=== PATIENT | female | born 2000 | race Caucasian/White ===

== ENCOUNTER 2020-03-20 21:07 | Emergency (ER) | payer MEDICAID, SELFPAY ==
[2020-03-20 21:09] VITALS: BP 114/64; PULSE 107; RESP 18; TEMP 36.5; O2SAT 98; BMI 35.2
[2020-03-20 21:32] VITALS: BP 125/80; PULSE 102; RESP 17; O2SAT 99
--- NOTE | 2020-03-20 21:54 | ED_ITS ---
HPI - Abdominal Pain General: Chief Complaint: Abdominal Pain Stated Complaint: 37 wk preg/ side pain/ swollen feet Time Seen by Provider: 03/20/20 21:25 History of Present Illness: HPI narrative: 19-year-old female patient presents to the emergency department 37 weeks IUP. Reports past 24-hour onset of right upper quadrant pain/right side pain. She denies falls trauma -reports nausea, denies vomiting. She reports normal intake of p.o. solids and liquids. She denies fever or chills. Reports increased swelling to the bilateral lower extremities. She reports heartburn symptoms. Last ate today. She reports took Tylenol for pain, no results of improvement. Primary care provider/OB is Dr. Akers. She reports normal movement, denies contractions or lower abdominal pain. MD elicited complaint: abdominal pain Pertinent past history: none Onset (ago): day(s) (2) Pain Consistency: constant Location: RUQ and RLQ Severity: moderate Quality: stabbing Migration to: no migration Exacerbating factors: nothing Relieving factors: nothing Associated Symptoms: Reports nausea and other (headache); Denies chills, GI cramping, dysuria, fever(s) and vomiting Treatments prior to arrival: other (APAP) Review of Systems General: Reports: 10 or more systems reviewed and unremarkable except in HPI and below Const: Denies: fever(s), chills or diaphoresis Eyes: Denies: blurry vision or eye redness ENMT: Denies: throat pain, dental pain or disequilibrium Card: Denies: chest pain, palpitations or irregular heart rhythm Resp: Denies: dyspnea, productive cough, non-productive cough or wheezing GI: Reports: abdominal pain, nausea and other (headache); Denies: vomiting or GI cramping : Reports: flank pain and urinary frequency; Denies: difficulty voiding, dysuria, urinary urgency or urinary incontinence Musc: Denies: neck pain or back pain Skin/Breast: Denies: rash or pruritus Neuro: Denies: headache(s), weakness in extremities or behavioral changes Psych: Denies: anxiety or depression Olvin/Lymph: Denies: easy bruising PFSH ED PFSH: Social History Smoking and tobacco status: never smoked Physical Exam Const: COMMON NORMALS: no acute distress, patient oriented x3, healthy appearing and alert GENERAL APPEARANCE: cooperative, anxious and well hydrated ORIENTATION/CONSCIOUSNESS: Yes awake, Yes oriented to person, Yes oriented to place and Yes oriented to time HENMT: COMMON NORMALS: normocephalic, Normal external nose present and moist oral mucous membranes HEAD & SCALP: normocephalic NOSE: Normal external nose present Eye: COMMON NORMALS: Equal, round and reactive pupils present and EOMs intact bilaterally GENERAL EYE: appearance normal, both eyes and all related structures PUPIL: Yes Equal, round and reactive pupils present Neck/C-Spine: COMMON NORMALS: full ROM and no lymphadenopathy GENERAL: Yes normal visual inspection and Yes trachea midline CERVICAL SPINE: Yes cervical ROM normal Lymph: LYMPHATIC: no lymphadenopathy noted Chest: COMMONS NORMALS: normal inspection of the chest Resp: COMMON NORMALS: normal respiratory effort and clear to auscultation bilaterally AUSCULTATION: clear to auscultation bilaterally Cardio: COMMON NORMALS: regular rhythm, S1 normal heart sound present and S2 normal heart sound present RHYTHM: regular rhythm HEART SOUNDS: S1 normal heart sound present and S2 normal heart sound present GI: COMMON NORMALS: Normal to inspection, nondistended, normoactive bowel sounds present INSPECTION: Yes normal to inspection, No Abdominal wall edema, No visible peristalsis and Yes other () AUSCULTATION: Yes normoactive bowel sounds PALPATION: Yes Tenderness to palpation present (GI) (right flank) Details: RLQ and RUQ : COMMON NORMALS: Yes no CVA tenderness BLADDER/KIDNEY EXAM: Yes no CVA tenderness Back/Pelvis: COMMON NORMALS: no CVA tenderness and thoracic and lumbar spine normal to inspection Extremity: COMMON NORMALS: normal to inspection and capillary refill normal Neuro: XU COMA SCALE: document GCS findings [place] coma scale eye opening: Spontaneous [place] coma scale verbal response: Orientated Xu coma scale motor response: Obey commands Xu coma scale total score: 15 COMMON NORMALS: patient oriented x3 and no focal motor deficits SENSORIUM/ORIENTATION: Yes alert, Yes oriented to person, Yes oriented to place and Yes oriented to time SPEECH: speech normal GAIT: Yes Normal gait present MOTOR EXAM: 5/5 motor strength present throughout Psych: COMMON NORMALS: mental status grossly normal, Normal thought process p resent and cooperative ACTIVITY/MOTOR BEHAVIOR: Yes appropriate eye contact THOUGHT PROCESS: Normal thought process present Skin: COMMON NORMALS: no rashes or lesions noted and turgor normal GENERAL SKIN EXAM: no rashes or lesions noted and turgor normal Course ED course: Continuous monitoring, heart rate 147, obstetrics at bedside, no contractions -results discussed with the patient, after monitoring and reassurance, patient reports right upper quadrant pain and right side pain resolved, nausea resolved, she reports feeling better and is requesting to go home. She has tolerated p.o. fluids, case discussed with Dr. Hernandez, will discharge home with plan for her to follow-up with her OB this week as scheduled. Vital Signs: Vital signs: Vital Signs Temperature 97.7 F 03/20/20 21:09 Pulse Rate 78 03/20/20 23:56 Respiratory Rate 18 03/20/20 23:56 Blood Pressure 125/80 03/20/20 21:32 Pulse Oximetry 100 03/20/20 23:56 MDM - Abdominal Pain Lab Data: Labs: Lab Results 03/20/20 03/20/20 03/20/20 Range/Units 22:00 22:00 22:19 WBC 10.2 (4.5-13.0) 10^3/ uL RBC 3.71 L (4.1-5.3) 10^6/u L Hgb 9.1 L (11.5-15.3) g/dL Hct 29.6 L (37.0-47.0) % MCV 79.8 L (81-99) fL MCH 24.5 L (28.0-34.0) pg MCHC 30.7 (30.0-36.0) g/dL RDW 14.5 (12.1-15.1) % Plt Count 352 (130-400) 10^3/c mm MPV 11.3 H (7.4-10.4) fL Neut % (Auto) 67.8 % Lymph % (Auto) 21.8 % Henry % (Auto) 8.0 % Eos % (Auto) 1.0 % Baso % (Auto) 0.3 % Neut # (Auto) 6.93 (1.8-8.0) 10^3/u L Lymph # (Auto) 2.2 (1.5-6.5) 10^3/u L Henry # (Auto) 0.8 (0.2-0.9) 10^3/u L Eos # (Auto) 0.1 (0.0-0.8) 10^3/u L Baso # (Auto) 0.0 (0.0-0.1) 10^3/u L Nucleated RBC % (a uto) 0 % Nucleated RBCs # 0.0 /100WBC Sodium 139 (136-145) mmol/L Potassium 3.7 (3.5-5.1) mmol/L Chloride 108 H (98-107) mmol/L Carbon Dioxide 21 L (22-29) mmol/L Anion Gap 13.7 (5-19) BUN 6 (6-20) mg/dL Creatinine 0.6 (0.5-0.9) mg/dL GFR Calculation 127.5 (90-130) mL/min Glucose 157 H (65-115) mg/dL Calculated Osmolal ity 289 (285-295) mOsm/k g Calcium 9.0 (8.5-10.5) mg/dL Total Bilirubin 0.2 (0.15-1.2) mg/dL AST 11 (0-32) U/L ALT < 5 (0-33) U/L Alkaline Phosphata se 144 H (35-105) IU/L Total Protein 5.6 L (6.6-8.7) g/dL Albumin 3.0 L (3.5-5.2) g/dL Globulin 2.6 (1.3-4.6) g/dL Lipase 18 (13-60) U/L Urine Color Yellow (Yellow) Urine Appearance Clear (CLEAR) Urine pH 5 (5-7) Ur Specific Gravit y 1.015 (1.005-1.030) Urine Protein Neg (Negative) Urine Glucose (UA) Norm (Normal) Urine Ketones Negative (Negative) Urine Blood Neg (Negative) Urine Nitrate Negative (Negative) Urine Bilirubin Neg (Negative) Urine Urobilinogen Norm (Negative) mg/dL Ur Leukocyte Pat ase Negative (Negative) Discharge Plan Discharge Patient Disposition: Home Clinical Impression: Abdominal pain, RUQ, Nausea Qualifiers: Weeks of gestation: 37 weeks Qualified Code(s): Z3A.37 - 37 weeks gestation of Condition: Stable Prescriptions: No Action triamcinolone acetonide 0.1 % cream 1 applic TOPICAL BID Qty: 80 RF: 1 Discharge Orders: Discharge Order (Routine); Ordered 03/20/20 Ordered By: Neeru Castillo Referrals: Adryan Akers MD [Primary Care Provider] - Discharge Activity: Limit activity as instructed Patient Instructions: Acute Nausea and Vomiting (ED), Abdominal Pain (ED), Abdominal Pain in (ED) Activity Restrictions/Additional Instructions: Avoid fried fatty, greasy foods, small frequent meals Avoid foods that will upset your stomach Continue Tylenol as needed for pain Push fluids Follow-up with Dr. Akers this week as scheduled, contact his office tomorrow to let him know of ED evaluation today Return to the emergency department/hospital if you develop decreased activity, increased right upper quadrant pain, return of abdominal pain or continued nausea vomiting Discharge Date/Time: 03/20/20 23:57 Coding Level of Care Code ED Residential Solar Consultant for Chg Fwd Exam Comprehensive
[2020-03-20 22:15] LABS: Basophils % 0.3 %; Eosinophils # 0.1 10^3/uL (0.0-0.8); Hematocrit 29.6 % (37.0-47.0); Hemoglobin 9.1 g/dL (11.5-15.3); Lymphocytes # 2.2 10^3/uL (1.5-6.5); Lymphocytes % 21.8 %; Mean Corpuscular HGB Conc 30.7 g/dL (30.0-36.0); Mean Corpuscular Hemoglobin 24.5 pg (28.0-34.0); Mean Corpuscular Volume 79.8 fL (81-99); Mean Platelet Volume 11.3 fL (7.4-10.4); Monocytes # 0.8 10^3/uL (0.2-0.9); Neutrophils # 6.93 10^3/uL (1.8-8.0); Neutrophils % 67.8 %; Nucleated Red Blood Cells % 0 %; Platelet Count 352 10^3/cmm (130-400); Red Blood Count 3.71 10^6/uL (4.1-5.3); Red Cell Distribution Width 14.5 % (12.1-15.1); White Blood Count 10.2 10^3/uL (4.5-13.0)
[2020-03-20 22:29] LABS: Alanine Aminotransferase < 5 U/L (0-33); Alkaline Phosphatase 144 IU/L (35-105); Anion Gap 13.7 (5-19); Aspartate Amino Transferase 11 U/L (0-32); Blood Urea Nitrogen 6 mg/dL (6-20); Carbon Dioxide 21 mmol/L (22-29); Chloride 108 mmol/L (98-107); Globulin 2.6 g/dL (1.3-4.6); Glomerular Filtration Rate 127.5 mL/min (90-130); Glucose 157 mg/dL (65-115); Lipase 18 U/L (13-60); Osmolality Calculated 289 mOsm/kg (285-295); Potassium 3.7 mmol/L (3.5-5.1); Sodium 139 mmol/L (136-145); Total Bilirubin 0.2 mg/dL (0.15-1.2); Total Protein 5.6 g/dL (6.6-8.7)
[2020-03-20 22:56] LABS: Add Urine Microscopic? NO; Bilirubin Urine Neg (Negative); Blood Urine Neg (Negative); Glucose Urine UA Norm (Normal); Ketones Urine Negative (Negative); Leukocyte Esterase Urine Negative (Negative); Nitrate Urine Negative (Negative); Protein Urine Neg (Negative); Specific Gravity, Urine 1.015 (1.005-1.030); Urine Appearance Clear (CLEAR); Urine Color Yellow (Yellow); Urobilinogen Urine Norm (Negative); pH Urine 5 (5-7)
[2020-03-20 23:56] VITALS: PULSE 78; RESP 18; O2SAT 100
== END 2020-03-20 23:57 | disposition home or self-care (01) ==
PROVIDERS: Emergency Provider Nurse Practitioner Family; PCP Family Medicine
DX: O26.893 Other specified pregnancy related conditions, third trimester (principal); R10.11 Right upper quadrant pain; R11.0 Nausea; Z3A.37 37 weeks gestation of pregnancy
CPT/HCPCS: 12345; 36415; 80053; 81003; 83690; 85025; 99282

== ENCOUNTER 2020-04-15 13:37 | Inpatient (IN) | payer MEDICAID, SELFPAY ==
[2020-04-15] VITALS (33 sets, daily range): BP systolic 0–139; BP diastolic 0–87; PULSE 87–105; RESP 16–18; TEMP 36.7–37.4; O2SAT 97–98; BMI 39.4
--- NOTE | 2020-04-15 14:27 | US_ITS ---
WS: [id number] BIOPHYSICAL PROFILE AMNIOTIC FLUID HISTORY: IRREGULAR HEARTBEAT COMPARISON: 12/03/2019 Cardiac activity: 129 bpm. Cervix: closed. Placenta: Posterior, no previa or abruption. Vertex position. Parameters are as follows: Breathin Movement: 2 Tone: 2 Fluid volume: 2 US/US OB BPP wo NST 20821 IMPRESSION: 1. Biophysical profile score: 8/8. 2. Largest vertical pocket of amniotic fluid is 4.0 cm.
[2020-04-15] MEDS: miSOPROStol 100 mcg tablet 25 MCG VAGINAL ×2 (15:50→19:51)
[2020-04-15 16:08] LABS: Basophils % 0.2 %; Eosinophils # 0.1 10^3/uL (0.0-0.8); Eosinophils % 0.5 %; Hematocrit 29.5 % (37.0-47.0); Hemoglobin 8.8 g/dL (11.5-15.3); Lymphocytes # 1.7 10^3/uL (1.5-6.5); Lymphocytes % 12.8 %; Mean Corpuscular HGB Conc 29.8 g/dL (30.0-36.0); Mean Corpuscular Hemoglobin 24.3 pg (28.0-34.0); Mean Corpuscular Volume 81.5 fL (81-99); Mean Platelet Volume 12.6 fL (7.4-10.4); Monocytes # 0.8 10^3/uL (0.2-0.9); Monocytes % 6.3 %; Neutrophils # 10.23 10^3/uL (1.8-8.0); Neutrophils % 78.7 %; Nucleated Red Blood Cells % 0 %; Platelet Count 275 10^3/cmm (130-400); Red Blood Count 3.62 10^6/uL (4.1-5.3); Red Cell Distribution Width 16.8 % (12.1-15.1)
[2020-04-16] VITALS (324 sets, daily range): BP systolic 0–171; BP diastolic 0–111; PULSE 62–133; RESP 16–20; TEMP 36.9–37.8; O2SAT 74–100
[2020-04-16] MEDS: lactated ringers 1,000 ML 999 ML IV ×2 (01:09→02:50)
[2020-04-16] MEDS: dextrose 5%-lactated ringers 1,000 ML 125 ML IV ×4 (02:06→19:47)
[2020-04-16] MEDS: oxytocin 30 UNIT/500 ML BAG IV (02:21)
--- NOTE | 2020-04-16 03:30 | ANES.PREANE2 ---
Pre-Anesthetic Assessment Pre-Anesthetic Assessment: Height/Weight: Height 1.52 m Weight 91.626 kg Temp Pulse Resp BP Pulse Ox 98.6 F 116 H 16 140/71 96 04/16/20 01:00 04/16/20 03:52 04/16/20 01:00 04/16/20 03:52 04/16/20 03:52 Preop Diagnosis: IUP Proposed Procedure: labor epidural Was Beta Anne Marie taken within 24 hours: N/A Social: Social History: No alcohol and No tobacco Exam: Pre-Anes Outpt Exam: alert, oriented x 3, clear to auscultation bilaterally and regular rate & rhythm Airway: Submandibular: WNL Cervical ROM: WNL MP: 1 Additional comments: tongue piercing and lip ring History/ROS: No significant history except as noted Pulmonary: Pulmonary: None reported CV/HEM: CV/HEM: None reported : : None reported Hepatic: Hepatic: None reported GI: GI: GERD Metabolic: Metabolic: None reported Musc/skel: Musc/skel: None reported Neuropsych: Neuropsych: None reported Anesthetic Plan: ASA status: 1 Anesthesia: Anesthesia Evaluation Risk of > 500 ml blood loss (7ml/kg in children): No Meds/Allergies Current Medications: Current Medications Generic Name Dose Route Start Last Admin Trade Name Freq PRN Reason Stop Dose Admin Dextrose/Lactated Ringer's 1,000 mls @ 125 m ls/hr 04/15/20 14:30 04/16/20 03:53 Dextrose 5%-Lact ated Ringers IV 125 mls/hr .Q8H DAHIANA Administration Oxytocin 30 unit in 500 ml s @ 1 mls/hr 04/16/20 02:15 04/16/20 02:21 Pitocin IV 1 milliunit/min .Q24H DAHIANA 1 mls/hr Administration Protocol 1 MILLIUNIT/MIN Ropivacaine 200 mg in 100 mls @ 13 mls/hr 04/16/20 03:00 04/16/20 03:52 Naropin Premix EPIDURAL 13 mls/hr .Q7H42M DAHIANA Administration Lactated Ringer's 1,000 mls @ 999 m ls/hr 04/16/20 02:49 04/16/20 02:50 Lactated Ringers IV 999 mls/hr .Q1H1M PRN Administration See label comment s Ondansetron HCl 4 mg 11/20/20 14:26 04/16/20 03:52 Ondansetron 2 Mg /Ml Sdv 2 Ml IVP 4 mg Q4H PRN Administration NAUSEA AND VOMITI NG PFSH Anesthesia PFSH: Social History Smoking and tobacco status: never smoked Female Reproductive History: : 1 Data Anesthesia CBC & Chem 7: 04/15/20 15:30 Other Labs: Laboratory Results - last 48 hr 04/15/20 04/15/20 15:30 15:30 WBC 13.0 RBC 3.62 L Hgb 8.8 L Hct 29.5 L MCV 81.5 MCH 24.3 L MCHC 29.8 L RDW 16.8 H Plt Count 275 MPV 12.6 H Neut % (Auto) 78.7 Lymph % (Auto) 12.8 [place] % (Auto) 6.3 Eos % (Auto) 0.5 Baso % (Auto) 0.2 Neut # (Auto) 10.23 H Lymph # (Auto) 1.7 [place] # (Auto) 0.8 Eos # (Auto) 0.1 Baso # (Auto) 0.0 Nucleated RBC % (auto) 0 Nucleated RBCs # 0.0 Blood Type O Positive Rho(D) Type Positive Antibody Screen Negative Cardiac Studies: No Data to Display
[2020-04-16] MEDS: ondansetron 2 mg/ML SDV 2 mL 4 MG IVP (03:52)
--- NOTE | 2020-04-16 04:04 | ANES.PROC ---
Anesthesia Procedures Procedure/Date: 04/16/20 Epidural: Time Out Performed: Yes Consents Signed: Procedure Consent Consent: requested by attending/covering physician Lumbar Level: L3-L4 Epidural position: sitting Epidural procedure: sterile prep of area, 1% lidocaine to numb the area, 18 g needle, negative for paresthesia passed, neg for paresthesia, test dose given, 1.5% xylocaine 1:200k epi (5ml), placed PCEA, no systemic response, sterile dressing applied, L.U.D. no apparent complications and 0.2% Ropiavacaine @ mls/hr (13)
--- NOTE | 2020-04-16 04:24 | ANES.PROC ---
Anesthesia Procedures Procedure/Date: 04/16/20 Procedure Narrative: patient having L hip pain, turned to side, PCEA bolus initiated and Fentanyl 100mcg given per epidural
--- NOTE | 2020-04-16 12:10 | PC.NURSE ---
Notified Remi Quan CRNA, that bolus button has been pushed 2x, with no relief. Patient is breathing through contractions, rating her pain a 7/10.
--- NOTE | 2020-04-16 12:23 | PC.NURSE ---
Dr. Akers at patient bedside. Updated Dr. Akers on how heart strip looks on the monitor. heart tones can still be heard the same as it was previously, so orders received to continue care as previously being done.
--- NOTE | 2020-04-16 12:47 | ANES.PROC ---
Anesthesia Procedures Procedure/Date: 04/16/20 Procedure Narrative: I was called to assess pain level/epidural of the patient. She was visibly hurting and admitted ti a pain level of 7/10. A bolus was given to the patient of 10mL PF 2%lidocaine. After bolus given patient rated pain 3/10. will continue to monitor. Report of intervention to OB RN
--- NOTE | 2020-04-16 13:33 | PC.NURSE ---
scalp electrode came off at 1328. External monitor placed at 1329. scalp electrode placed at 1332. heart tones can be heard in the 140s while in the room.
--- NOTE | 2020-04-16 14:43 | ANES.PROC ---
Anesthesia Procedures Procedure/Date: 04/16/20 epidural Procedure Narrative: It was noted that patient epidural was not working after further inspection. Possible migration of previous epidural. Patient asked for epidural to be replaced. Previous epidural removed with tip intact. Patient was given 50 mcg fentanyl by DINING CAR SERVER prior to procedure start. 50 mcg fentanyl wasted with OB RN. Replacement epidural complete, bolus given, epidural pump initiated with PROGRAMMING DEVELOPMENT PROJECT MANAGER education given, vitals taken during procedure using OBIX system and satisfactory throughout, patient admits to decrease pain, report of procedure to OB RN Epidural: Time Out Performed: Yes Consents Signed: Procedure Consent Consent: requested by attending/covering physician, from patient, risks and benefits reviewed and patient agrees to proceed Lumbar Level: L2-L3 Epidural position: sitting Epidural procedure: sterile prep of area, 1% lidocaine to numb the area (3 mL), 18 g needle, negative for paresthesia passed, neg for paresthesia, test dose given, 1.5% xylocaine 1:200k epi (5 mL), 0.2% Ropivacaine bolus ml (5 mL), placed PCEA, no systemic response, sterile dressing applied, L.U.D. no apparent complications and 0.2% Ropiavacaine @ mls/hr (13 mL/hr)
--- NOTE | 2020-04-16 14:58 | PC.NURSE ---
scalp electrode removed. New scalp electrode applied. heart tones can be heard while in the room in the 140s.
--- NOTE | 2020-04-16 15:32 | PC.NURSE ---
Assisted the patient onto the bedpan. Instructed patient to hit her call light when she is finished.
--- NOTE | 2020-04-16 15:45 | PC.NURSE ---
Removed patient from the bedpan.
--- NOTE | 2020-04-16 16:46 | PC.NURSE ---
Patient hit her call light and stated she feels like she has to push. Performed SVE, patient is not complete. Educated patient on not pushing at this time, due to her still having cervix left. Patient acknowledged understanding.
[2020-04-16] MEDS: fentaNYL 50 mcg/mL INJ 2mL IVP (19:24)
[2020-04-16] MEDS: hyDROXYzine 25 mg Capsule 50 MG PO (20:18)
--- NOTE | 2020-04-16 20:42 | ANES.PROC ---
Anesthesia Procedures Procedure/Date: 04/16/20 Epidural assessment Procedure Narrative: Epidural assessed and noted to be functioning appropriately. Patient claims to have pain in the lower left side of her back. 100 mcg fentanyl with 5 mL of PF 2% lidocaine was given in the epidural with patient positioned on her left side. 5mL of PF 2% lidocaine wasted. Report of intervention to OB RN
--- NOTE | 2020-04-16 22:55 | P.HP_ITS ---
Providers/Chief Complaint Admitting Physician: Adryan Akers MD Primary Care Provider: Adryan Akers MD Chief Complaint: INDUCTION HPI CASING MATERIAL WEIGHER History of Present Illness Maribel Barney is a 19 year old 1 female at 39 weeks estimated gestational age who presented to the hospital for an elective induction since her was going to be leaving town in a few days. We discussed the need for avoiding an elective induction. The patient expressed understanding and wished to proceed with induction regardless. After presenting to the hospital her induction was initiated with Cytotec x2. During the process she was noted to have a arrhythmia. As result I placed a scalp lead and performed an amniotomy her labor was then augmented with Pitocin. She made very slow progress but eventually progressed to an anterior lip. Her cervix was somewhat stretchy, and the patient was not tolerating not pushing well, despite having a couple of different episodes of epidurals being placed and readjusted. As result we attempted to push to see if we could reduce the cervix. Despite an hour pushing the anterior lip maintained, and the baby's head did not move down maintain a station of 0. Present Details : 1 Para: 0 Labs Rubella: Non-Immune RPR: Negative GBS: Negative Review of Systems General: Reports: 10 or more systems reviewed and unremarkable except in HPI and below Const: Reports: fatigue; Denies: fever(s) Eyes: Denies: change in vision Card: Denies: chest pain GI: Reports: heartburn Musc: Reports: back pain Olvin/Lymph: Denies: easy bruising Medications/Allergies Home Medications Medication Instructions Recorded Confirmed Last Taken Type docusate sodium 100 mg PO BID PRN #30 cap 04/19/20 Unknown Rx ferrous sulfate 325 mg PO BIDWM #60 tab 04/19/20 Unknown Rx ibuprofen 800 mg PO TID #45 tab 04/19/20 Unknown Rx multivit no.01-ocyk-aorek acid 1 cap PO BREAKFAST #30 cap 04/19/20 Unknown Rx [-U] oxycodone-acetaminophen 1 tab PO Q4H PRN #28 tab 04/19/20 Unknown Rx Allergies Allergy/AdvReac Type Severity Reaction Status Date / Time No Known Allergies Allergy Verified 12/19/19 11:59 PFSH CASING MATERIAL WEIGHER PFSH: Social History (Reviewed 12/14/19 @ 16:47 by CARRIE Denise Smoking and tobacco status: never smoked Vitals/I&O/Wt Last Vital Signs Temp 99.2 F 04/16/20 20:42 Pulse 118 H 04/16/20 22:44 Resp 18 04/16/20 19:24 BP 160/71 04/16/20 22:44 Pulse Ox 97 04/16/20 16:34 04/16/20 04/16/20 04/16/20 06:59 14:59 22:59 Intake Total 226.567 / 581.752 5324.900 / 1792.327 1264.766 / 2357.666 Output Total 200 / 200 900 / 900 120 / 1020 Balance 26.567 / 26.567 292.900 / 847.233 3382.766 / 1337.666 Weight last 48 hrs Weight 202 lb Physical Exam Const: COMMON NORMALS: patient oriented x3 and alert HENMT: COMMON NORMALS: moist oral mucous membranes HEAD & SCALP: normal to inspection Chest: COMMONS NORMALS: normal inspection of the chest Resp: COMMON NORMALS: clear to auscultation bilaterally AUSCULTATION: clear to auscultation bilaterally Cardio: COMMON NORMALS: regular rate and regular rhythm RATE: regular rate RHYTHM: regular rhythm GI: INSPECTION: Yes normal to inspection and Yes other (Gravid) Extremity: COMMON NORMALS: normal to inspection GENERAL: Yes edema (Trace) Neuro: COMMON NORMALS: patient oriented x3, moves all extremities and no sensory deficits noted SENSORIUM/ORIENTATION: Yes alert Psych: COMMON NORMALS: mental status grossly normal Skin: COMMON NORMALS: no rashes or lesions noted GENERAL SKIN EXAM: no rashes or lesions noted Urinary Catheter Management^: Perez: Cath Placed During This Visit: yes Reason for Continuing Indwelling Catheter: Required Immobilization for Trauma or Surgery or Anesthesia Urinary Catheter Date of Insertion: 04/16/20 Urinary Catheter Time of Insertion: 04:40 Data : 04/17/20 16:25 A&P Assessment and plan (1) 39 weeks gestation of : Due to the patient's failure to progress despite pushing for over an hour, I have elected to proceed with a section. Because of a arrhythmia, I requested that Dr. Fleming be present and she has graciously agreed to be here despite the fact that she is not on-call. I discussed the ri sks with the patient and her significant other. We discussed the risks of bleeding, infection, and damage intra-abdominal organs. They have no further questions and wished to proceed. Status: Resolved (2) Failure to progress in second stage of labor: Status: Resolved (3) arrhythmia affecting , antepartum: Status: Resolved Attestations Medical Necessity Statement*: Induction, and post care Coding Level of Care Code Acute Industrial Gas Servicer Supervisor for Chg Fwd Exam Comprehensive Diagnoses 39 weeks gestation of Z3A.39 Failure to progress in second stage of labor O62.2 arrhythmia affecting , antepartum O36.8390
[2020-04-16] MEDS: metoclopramide 5 mg/mL SDV 2 mL 10 MG IVP (23:03)
[2020-04-16] MEDS: famotidine 20 mg/2 mL INJ IVP (23:03)
[2020-04-16] MEDS: citric acid-sodium citrate 30 mL UDC PO (23:04)
[2020-04-17] VITALS (26 sets, daily range): BP systolic 94–135; BP diastolic 50–89; PULSE 89–138; RESP 16–18; TEMP 36.6–37.1; O2SAT 87–100
--- NOTE | 2020-04-17 00:56 | PM.PACU ---
PACU note PACU note: In OB recovery, good respiratory effort, report to OB RN Post-Anesthesia Exam: awake Disposition: back to floor
--- NOTE | 2020-04-17 01:14 | P.OP_ITS ---
Operative Report Date of procedure: April 17, 2020 Pre-op Diagnosis: 39-week, failure to progress Post-op diagnosis: same Procedure Done: Lower transverse section Specimens removed/disposition: 1. Male infant with a weight of 8 pounds 13 ounces and Apgars of 8 and 9 2. Placenta with a three-vessel cord delivered intact Surgeon: Adryan Akers Anesthesia: Epidural (Spinal) Estimated blood loss (mL): 600 Complications: None Condition: stable Procedure: The patient was brought back to the operating room where she was prepped and draped in usual sterile fashion. Anesthesia was found to be adequate. A lower transverse skin incision was then made with a #10 blade. I then dissected down to the underlying subcutaneous tissue until arriving at the prerectal fascia. The fascia was then nicked with the scalpel bilaterally. The fascial incisions were then carried laterally with Garcia scissors. Attention was then turned to the superior aspect of the incision which was grasped with kochers and tented up away from the underlying rectus abdominis muscles. The muscles were then dissected away from the fascia manually, and later with Garcia scissors. Attention was then turned to the inferior aspect of the incision, and the fascia was dissected away from the underlying muscle in similar fashion. The rectus abdominis muscles were then spread manually. The peritoneum was e ntered manually. Excellent visualization of the uterus was noted. A lower transverse uterine incision was then made with a #10 blade. Upon arriving at the intrauterine cavity, the uterine incision was then extended manually. The infant was noted to be in vertex position. The baby was delivered without difficulty. After delivery of the head, the mouth and nose were suctioned at the site of the incision. Meconium was noted. There is also a faint odor that could be consistent with chorioamnionitis. There was no nuchal cord. The remainder of the body was then delivered and placed on the abdomen. The cord was cut and clamped. The baby was then handed to the waiting nurse. The placenta was removed intact. The uterus was externalized. The intrauterine cavity was cleansed of any remaining debris. The uterine incision was reapproximated in 2 layers. The first layer was performed with 0 Vicryl in a running locked stitch. The second layer was an imbricating stitch also using 0 Vicryl. The uterus was replaced into the abdomen. The peritoneum was then irrigated with warm saline. I reexamined the uterine incision and found it to be hemostatic. The rectus abdominis muscles we re then reapproximated using 0 Vicryl in a running stitch. The fascia was then reapproximated using 0 Vicryl in running stitch. The subcutaneous tissue was then reapproximated using 0 Vicryl in a running stitch. The skin was reapproximated using kylah. A sterile dressing was placed. All counts were correct x2. Both the mother and baby were in stable condition. Associated Problem List Diagnoses (1) Failure to progress in second stage of labor: (2) 39 weeks gestation of : (3) arrhythmia affecting , antepartum:
--- NOTE | 2020-04-17 02:46 | PC.NURSE ---
Respiratory at bedside to assess patient at this time.
[2020-04-17 05:47] LABS: Hematocrit 26.4 % (37.0-47.0); Hemoglobin 7.8 g/dL (11.5-15.3); Mean Corpuscular HGB Conc 29.5 g/dL (30.0-36.0); Mean Corpuscular Hemoglobin 24.1 pg (28.0-34.0); Mean Corpuscular Volume 81.5 fL (81-99); Mean Platelet Volume 12.1 fL (7.4-10.4); Platelet Count 253 10^3/cmm (130-400); Red Blood Count 3.24 10^6/uL (4.1-5.3); Red Cell Distribution Width 17.1 % (12.1-15.1); White Blood Count 23.4 10^3/uL (4.5-13.0)
[2020-04-17] MEDS: methylergonovine 0.2 mg/mL INJ 1 mL IM (06:42)
[2020-04-17] MEDS: ferrous sulfate EC 325 mg Tablet PO (09:06)
[2020-04-17] MEDS: prenatal vitamin Capsule 1 CAP PO (09:06)
[2020-04-17] MEDS: dextrose 5%-lactated ringers 1,000 ML 125 ML IV ×2 (09:08→22:07)
--- NOTE | 2020-04-17 09:22 | PC.NURSE ---
Notified Dr. Akers at this time that pt urine output was 100mL and concentrated. This has been since 399, pt pulse is in the 130s and her hemaglobin is 7.8. Received orders for 1L bolus of normal saline and to draw hemagram at 1600.
[2020-04-17] MEDS: docusate sodium 100 mg Capsule PO (09:48)
[2020-04-17] MEDS: sodium chloride 0.9% 1,000 ML 999 ML IV ×2 (09:49→16:34)
[2020-04-17] MEDS: ketorolac 30 mg/mL INJ IVP (13:05)
--- NOTE | 2020-04-17 15:45 | PC.NURSE ---
Pt ambulated in hallway 3 laps and tolerated well. Pt denies any complaints of dizziness or feeling light headed.
[2020-04-17 17:29] LABS: Basophils # 0.1 10^3/uL (0.0-0.1); Basophils % 0.2 %; Eosinophils # 0.1 10^3/uL (0.0-0.8); Eosinophils % 0.3 %; Hematocrit 25.4 % (37.0-47.0); Hemoglobin 7.4 g/dL (11.5-15.3); Lymphocytes # 1.5 10^3/uL (1.5-6.5); Lymphocytes % 7.5 %; Mean Corpuscular HGB Conc 29.1 g/dL (30.0-36.0); Mean Corpuscular Hemoglobin 24.1 pg (28.0-34.0); Mean Corpuscular Volume 82.7 fL (81-99); Mean Platelet Volume 12.5 fL (7.4-10.4); Monocytes # 1.5 10^3/uL (0.2-0.9); Monocytes % 7.4 %; Neutrophils # 16.85 10^3/uL (1.8-8.0); Neutrophils % 83.5 %; Nucleated Red Blood Cells % 0 %; Platelet Count 212 10^3/cmm (130-400); Red Blood Count 3.07 10^6/uL (4.1-5.3); Red Cell Distribution Width 17.4 % (12.1-15.1); White Blood Count 20.2 10^3/uL (4.5-13.0)
[2020-04-17] MEDS: ibuprofen 800 mg tablet PO (21:05)
[2020-04-17] MEDS: oxyCODONE-APAP 5-325 mg Tablet PO (21:06)
[2020-04-18 04:30] VITALS: BP 118/78; PULSE 106; RESP 16; TEMP 36.5; O2SAT 97
[2020-04-18] MEDS: dextrose 5%-lactated ringers 1,000 ML 125 ML IV (04:58)
--- NOTE | 2020-04-18 08:09 | PM.OBGYPN ---
HEALTH PROFESSIONAL Subjective Subjective: Interval history: The patient is doing well. In the first 12 hours postoperatively, her urine output was adequate. That has now dramatically improved with a couple fluid boluses. Her pain is well controlled. Her bleeding has been within normal limits. Labor: Station: +1 Amniotic Membrane Status: Leaking Monitor Mode: External Contraction Pattern: Regular Status: Category ll Vitals/I&O/Wt Last Vital Signs Temp 97.7 F 04/18/20 04:30 Pulse 106 H 04/18/20 04:30 Resp 16 04/18/20 04:30 BP 118/78 04/18/20 04:30 Pulse Ox 97 04/18/20 04:30 04/17/20 04/18/20 04/18/20 22:59 06:59 14:59 Intake Total 1240 / 1240 930.250 / 2170.250 Output Total 780 / 1180 1250 / 2430 Balance 460 / 60 -319.750 / -259.750 Physical Exam Narrative: EXAM NARRATIVE: She is in no acute distress Lungs are clear auscultation bilaterally Her heart has a regular rate and rhythm Her fundus is below the umbilicus and firm Her dressing is clean, dry and intact Her extremities have trace edema Urinary Catheter Management^: Perez: Cath Placed During This Visit: yes Reason for Continuing Indwelling Catheter: Required Immobilization for Trauma or Surgery or Anesthesia Urinary Catheter Date of Insertion: 04/16/20 Urinary Catheter Time of Insertion: 04:40 Data : 04/17/20 16:25 A&P Assessment and plan (1) 39 weeks gestation of : The patient is doing very well now, and anticipate routine care. Her diet has been advanced. She has been ambulating without difficulty. Her pain is been well controlled. 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
[2020-04-18] MEDS: prenatal vitamin Capsule 1 CAP PO (09:20)
[2020-04-18] MEDS: ibuprofen 800 mg tablet PO ×3 (09:20→20:20)
[2020-04-18] MEDS: ferrous sulfate EC 325 mg Tablet PO (09:20)
[2020-04-18] MEDS: docusate sodium 100 mg Capsule PO (09:20)
[2020-04-18 09:21] VITALS: RESP 18
[2020-04-18] MEDS: oxyCODONE-APAP 5-325 mg Tablet PO ×2 (09:21→15:25)
[2020-04-18 09:22] VITALS: BP 129/90; PULSE 128; RESP 18; TEMP 37.6; O2SAT 98
[2020-04-18 15:25] VITALS: RESP 18
[2020-04-18 15:28] VITALS: BP 120/77; PULSE 111; RESP 18; TEMP 36.7; O2SAT 100
[2020-04-18 22:51] VITALS: BP 119/79; PULSE 111; RESP 18; TEMP 36.9; O2SAT 100
[2020-04-19 05:00] VITALS: BP 128/86; PULSE 108; RESP 12; TEMP 36.7; O2SAT 99
--- NOTE | 2020-04-19 07:43 | PM.OBGYDC ---
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 Please see H&P for details of induction. Her induction was unsuccessful and she ultimately required a due to failure to progress. Her post care was notable for having a brief period when her urine output was adequate. Otherwise her course was unremarkable. Her bleeding was within normal limits. Her pain was well controlled. She was able to pass flatus and had her diet advanced. She tolerated it well. There were no concerns. Information Peripartum Data: Infant Delivery Method: Section Physical Exam Narrative: EXAM NARRATIVE: She is in no acute distress Lungs are clear auscultation bilaterally Her heart has a regular rate and rhythm Her fundus is below the umbilicus and firm Her dressing is clean, dry and intact Her extremities have trace edema Urinary Catheter Management^: Perez: Cath Placed During This Visit: yes, but has since been removed by the nurse Reason for Continuing Indwelling Catheter: Decision to DC Catheter Urinary Catheter Date of Insertion: 04/16/20 Urinary Catheter Time of Insertion: 04:40 Date Urinary Catheter Removed: 04/18/20 Time Urinary Catheter Discontinued: 10:00 Discharge Data Data Completed and Pending: Completed Studies During Hospitalization Category Date Time Status US OB BPP w o NST 01681 Stat Ultrasound 04/15/20 14:27 Completed Admission the patient's hemoglobin was 8.8. Postoperatively was 7.4. Her white blood count went from 13.0-20.2 her platelet count went from 2 75-2 12. Vitals: Last Vital Signs Temp 98.1 F 04/19/20 05:00 Pulse 108 H 04/19/20 05:00 Resp 12 04/19/20 05:00 BP 128/86 04/19/20 05:00 Pulse Ox 99 04/19/20 05:00 Discharge Plan Discharge Patient Disposition: Home Condition: Stable Prescriptions: New ibuprofen 800 mg Tablet 800 mg PO TID Qty: 45 RF: 0 oxycodone-acetaminophen 5-325 mg Tablet 1 tab PO Q4H PRN (Reason: Moderate To Severe Pain) Qty: 28 RF: 0 ferrous sulfate 325 mg (65 mg iron) Tablet,Delayed Release (Dr/Ec) 325 mg PO BIDWM Qty: 60 RF: 1 -U 106.5-1 mg Capsule 1 cap PO BREAKFAST Qty: 30 RF: 0 docusate sodium 100 mg Capsule 100 mg PO BID PRN (Reason: Constipation) Qty: 30 RF: 0 Discontinued triamcinolone acetonide 0.1 % cream 1 applic TOPICAL BID Qty: 80 RF: 1 Discharge Orders: Discharge Order (Routine); Ordered 04/19/20 Ordered By: Adryan Akers Referrals: Adryan Akers MD [Primary Care Provider] - 04/27/20 1:45 pm (* Your 2 week follow up appointment is with Dr. Akers on 05/02/2020 at 12:45pm. 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
[2020-04-19] MEDS: prenatal vitamin Capsule 1 CAP PO (08:47)
[2020-04-19] MEDS: ibuprofen 800 mg tablet PO (08:48)
[2020-04-19] MEDS: docusate sodium 100 mg Capsule PO (08:48)
[2020-04-19] MEDS: ferrous sulfate EC 325 mg Tablet PO (08:48)
[2020-04-19] MEDS: measles,mumps,rubella pf Vial (w/diluent) 0.5 ML SUBCUT (09:21)
[2020-04-19 10:20] VITALS: BP 138/94; PULSE 119; RESP 16; TEMP 36.7; O2SAT 98
== END 2020-04-19 10:20 | disposition home or self-care (01) | DRG 786 ==
PROVIDERS: Admitting Provider Family Medicine; PCP Family Medicine; Visit Provider Family Medicine
PROC: 3E0P7VZ Introduction of Hormone into Female Reproductive, Via Natural or Artificial Opening (ICD-10-PCS; CPT 59514; principal; 2020-04-15 23:10)
DX: O32.4XX0 Maternal care for high head at term, not applicable or unspecified (principal); O99.42 Diseases of the circulatory system complicating childbirth; K83.1 Obstruction of bile duct; O26.62 Liver and biliary tract disorders in childbirth; Z3A.39 39 weeks gestation of pregnancy; Z37.0 Single live birth; O77.0 Labor and delivery complicated by meconium in amniotic fluid
CPT/HCPCS: 12345; 36415; 51702; 59025; 59409; 76819; 85025; 85027; 86850; 86900; 90707; 96372; 96374; 96375; G0378; G0379; J0131; J0690; J1885; J2210; J2274; J2405; J2765; J2795; J3010; J3490; J7030

== ENCOUNTER → 2021-06-22 09:30 | Outpatient (BNVA) | payer MEDICAID, SELFPAY | PROVIDERS: PCP Family Medicine; Visit Provider Internal Medicine | DX: M06.9 Rheumatoid arthritis, unspecified (principal); Z11.59 Encounter for screening for other viral diseases; Z11.1 Encounter for screening for respiratory tuberculosis | CPT/HCPCS: 96372; 99204 ==

== ENCOUNTER 2021-11-06 10:59 | Outpatient (CLI) | payer MEDICAID, SELFPAY ==
[2021-11-06 11:46] LABS: C Reactive Protein 55.5 mg/L (0.0-4.9); Creatine Phosphokinase 41 U/L (26-192)
--- NOTE | 2021-11-06 11:54 | XRR_ITS ---
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 Views: 1 or 2 views. COMPARISON: CR Elbow 3 views, RIGHT* [id number] 01/16/2019 1:15 PM FINDINGS: Bones/joints: Osseous structures are intact. Negative for fracture. No irregular osseous erosions. Joint spaces are preserved. Soft tissues: Normal. XR/XR hand RT 2V [id number] IMPRESSION: No radiographic sequela of inflammatory arthropathy involving the right hand.
--- NOTE | 2021-11-06 11:54 | XRR_ITS ---
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 Views: 1 or 2 views. COMPARISON: CR Elbow 3 views, LEFT* [id number] 01/16/2019 1:19 PM FINDINGS: Bones/joints: Osseous structures are intact. Negative for fracture. No irregular osseous erosions. Joint spaces are preserved. Soft tissues: Normal. XR/XR hand LT 2V [id number] IMPRESSION: No radiographic sequela of inflammatory arthropathy involving the left hand.
[2021-11-06 12:16] LABS: Hepatitis B Core AB, Total Non-Reactive (Nonreactive); Hepatitis B Surface Antigen Non-Reactive (Nonreactive); Hepatitis C Virus Antibody Non-Reactive (Nonreactive)
[2021-11-07 12:42] LABS: Cyclic Citrullinated Peptide <16 UNITS
[2021-11-07 13:13] LABS: CENTROMERE B ANTIBODY <1.0 NEG AI (<1.0 NEG); COMPLEMENT COMPONENT C3C 148 mg/dL (83-193); COMPLEMENT COMPONENT C4C 18 mg/dL (15-57); JO-1 ANTIBODY <1.0 NEG AI (<1.0 NEG); RNP ANTIBODY <1.0 NEG AI (<1.0 NEG); SCL-70 ANTIBODY <1.0 NEG AI (<1.0 NEG); SJOGREN'S ANTIBODY (SS-A) <1.0 NEG AI (<1.0 NEG); SM ANTIBODY <1.0 NEG AI (<1.0 NEG); SS-B <1.0 NEG AI (<1.0 NEG)
[2021-11-07 14:58] LABS: THYROID PEROXIDASE ANTIBODIES 2 IU/mL (<9)
[2021-11-08 12:07] LABS: Quantiferon Mitogen >10.00 IU/mL; Quantiferon Nil 0.01 IU/mL; Quantiferon TB Gold NEGATIVE (NEGATIVE)
[2021-11-08 13:07] LABS: COMPLEMENT, TOTAL (CH50) >60 U/mL (31-60)
[2021-11-08 19:12] LABS: ANA SCREEN, IFA NEGATIVE (NEGATIVE)
[2021-11-09 16:43] LABS: DNA AB (DS) CRITHIDIA,IFA NEGATIVE (NEGATIVE)
== END 2021-11-06 11:00 | disposition home or self-care (01) ==
PROVIDERS: PCP Family Medicine; Visit Provider Internal Medicine
DX: M08.80 Other juvenile arthritis, unspecified site (principal)
CPT/HCPCS: 36415; 73120; 82550; 86140; 86160; 86162; 86200; 86235; 86255; 86376; 86480; 86704; 86803; 87340

== ENCOUNTER → 2021-12-13 15:17 | Outpatient (BNVA) | payer MEDICAID, SELFPAY | PROVIDERS: PCP Family Medicine; Visit Provider Internal Medicine | DX: M08.80 Other juvenile arthritis, unspecified site (principal); R79.82 Elevated C-reactive protein (CRP) | CPT/HCPCS: 99214 ==

== ENCOUNTER → 2024-09-29 18:32 | Outpatient (BNVA) | payer SELFPAY | PROVIDERS: PCP Family Medicine; Visit Provider Emergency Medicine | DX: Z20.2 Contact with and (suspected) exposure to infections with a predominantly sexual mode of transmission (principal) | CPT/HCPCS: 81513; 87481; 87491; 87591; 87661 ==

== ENCOUNTER → 2025-02-10 10:26 | Outpatient (BNVA) | payer MEDICAID, SELFPAY | PROVIDERS: PCP Family Medicine; Visit Provider Registered Nurse Neonatal Intensive Care | DX: R50.9 Fever, unspecified (principal) | CPT/HCPCS: 87071; 87880 ==

== ENCOUNTER → 2025-02-17 18:01 | Outpatient (BNVA) | payer MEDICAID, SELFPAY | PROVIDERS: PCP Family Medicine | DX: R39.9 Unspecified symptoms and signs involving the genitourinary system (principal); Z11.3 Encounter for screening for infections with a predominantly sexual mode of transmission | CPT/HCPCS: 81000; 81513; 87481; 87491; 87591; 87661 ==